=== PATIENT | female | born 1965 | race Caucasian/White ===

== ENCOUNTER 2020-10-14 15:29 | Emergency (ER) | payer MEDICAID ==
[~2020-10-14] VITALS: Ht 149.9 cm; Wt 64.4 kg
[2020-10-14 15:35] VITALS: BP 102/69
--- NOTE | 2020-10-14 15:39 | NUR ---
Pt ambulated to ER bed 7 with a steady gait.
[2020-10-14] MEDS ORDERED: ACETAMINOPHEN 325 MG TAB PO ONE (16:00)
--- NOTE | 2020-10-14 16:09 | NUR ---
LAB WORJ DRAWN BEDSIDE Addendum: 10/14/20 at 1610 by [email or web address] LAB WORK DRAWN BEDSIDE
--- NOTE | 2020-10-14 16:12 | NUR ---
retail maintenance technician at pt bedside.
[2020-10-14 16:29] LABS: BASOPHILS # (AUTO) 0.1 K/uL (0.00-0.22); BASOPHILS % (AUTO) 0.8 % (0.0-2.0); EOSINOPHILS # (AUTO) 0.1 K/uL (0-0.4); HEMATOCRIT 42.3 % (36-48); HEMOGLOBIN 14.3 g/dL (12.0-16.0); LYMPHOCYTES # (AUTO) 1.9 K/uL (2.5-16.5); MEAN CORPUSCULAR HEMOGLOBIN 31 pg (27-31); MEAN CORPUSCULAR HGB CONC 34 g/dL (33-37); MEAN CORPUSCULAR VOLUME 92.5 fL (80-94); MONOCYTES # (AUTO) 0.4 K/uL (0.8-1.0); NEUTROPHILS # (AUTO) 4.7 K/uL (1.8-7.7); NEUTROPHILS % (AUTO) 65.2 % (42.2-75.2); PLATELET COUNT (AUTO) 299 K/uL (140-450); RED BLOOD CELL COUNT(AUTO) 4.57 MIL/uL (4.20-5.40); RED CELL DISTRIBUTION WIDTH 13.6 % (11.6-13.7); WHITE BLOOD COUNT (AUTO) 7.2 K/uL (4.8-10.8)
[2020-10-14 16:42] LABS: ALBUMIN 4.3 g/dL (3.4-5.0); ANION GAP 14.2 (8-16); CARBON DIOXIDE 24.1 mmol/L (21-32); POTASSIUM 4.3 mmol/L (3.5-5.1); TOTAL BILIRUBIN 0.7 mg/dL (0.0-1.0)
--- NOTE | 2020-10-14 17:08 | NUR ---
PATIENT SITTING COMFORTABLE IN BED. STATES PAIN HAS DECREASED
--- NOTE | 2020-10-14 17:08 | NUR ---
55 Y/O FEMALE C/O CHEST PAIN 11/29 DESCRIBES SHARP RADIATES TO HEAD AND LEFT ARM WITH DIFFICULTY BREATHING INTERMITTENTLY X1WEEK. PT STATES +BLURRY VISION. PT DENIES FEVER/CHILLS, STATES +N/-V. PATIENT STATES FEEL TIGHTNESS/PRESSURE IN CHEST/THROAT AREA WHEN TAKING DEEP BREATH PMH: HTN, DM, HIGH CHOLESTEROL NKA
--- NOTE | 2020-10-14 17:13 | NUR ---
RECEIVED CRITICAL LAB VALUE BLAISE. TALIA HAYNES
[2020-10-14 17:25] LABS: RSV NEGATIVE (NEGATIVE)
[2020-10-14] MEDS ORDERED: ACET-2619 PO (17:26)
[2020-10-14] MEDS ORDERED: ALBU0.0912 INH (17:26)
[2020-10-14] MEDS ORDERED: OSEL75CA16 PO (17:26)
[2020-10-14 17:36] VITALS: BP 102/69
--- NOTE | 2020-10-14 17:36 | NUR ---
Patient discharged with v/s stable. Written and verbal after care instructions given and explained. Patient alert, oriented and verbalized understanding of instructions. Ambulatory with steady gait. All questions addressed prior to discharge. ID band removed. Patient advised to follow up with PMD. Rx of ACTAMINOPHEN 325 MG, ALBUTEROL SULFATE, OSELTAMIVIR PHOSPHATE 75 MG given. Patient educated on indication of medication including possible reaction and side effects. Opportunity to ask questions provided and answered.
== END 2020-10-14 17:32 | disposition home or self-care (01) ==
LOC: MED 15:29
DX: J10.1 Influenza due to other identified influenza virus with other respiratory manifestations (principal); I10 Essential (primary) hypertension; E78.00 Pure hypercholesterolemia, unspecified; E11.9 Type 2 diabetes mellitus without complications; Z20.822 Contact with and (suspected) exposure to COVID-19
CPT/HCPCS: 36415; 71045; 80053; 83690; 84484; 85025; 85379; 87420; 87804; 93005; 99285

== ENCOUNTER 2022-02-28 16:10 | Emergency (ER) | payer MEDICAID ==
[~2022-02-28] VITALS: Ht 149.9 cm; Wt 73.1 kg
[~2022-02-28 16:10] MED LIST: ACET-2619 PO; ALBU0.0912 INH; OSEL75CA16 PO
[2022-02-28 16:20] VITALS: BP 118/89
[2022-02-28 16:44] LABS: BASOPHILS # (AUTO) 0.1 K/uL (0.00-0.22); BASOPHILS % (AUTO) 1.1 % (0.0-2.0); EOSINOPHILS # (AUTO) 0.1 K/uL (0-0.4); EOSINOPHILS % (AUTO) 0.7 % (0.0-4.0); HEMATOCRIT 41.2 % (36-48); HEMOGLOBIN 13.9 g/dL (12.0-16.0); LYMPHOCYTES # (AUTO) 2.1 K/uL (2.5-16.5); LYMPHOCYTES % (AUTO) 17.1 % (20.5-51.1); MEAN CORPUSCULAR HEMOGLOBIN 30 pg (27-31); MEAN CORPUSCULAR HGB CONC 34 g/dL (33-37); MEAN CORPUSCULAR VOLUME 89.9 fL (80-94); MONOCYTES # (AUTO) 0.7 K/uL (0.8-1.0); MONOCYTES % (AUTO) 5.5 % (1.7-9.3); NEUTROPHILS # (AUTO) 9.1 K/uL (1.8-7.7); NEUTROPHILS % (AUTO) 75.6 % (42.2-75.2); PLATELET COUNT (AUTO) 251 K/uL (140-450); RED BLOOD CELL COUNT(AUTO) 4.58 MIL/uL (4.20-5.40); RED CELL DISTRIBUTION WIDTH 12.4 % (11.6-13.7); WHITE BLOOD COUNT (AUTO) 12.1 K/uL (4.8-10.8)
[2022-02-28 17:00] LABS: ALBUMIN 4.1 g/dL (3.4-5.0); ANION GAP 10.5 (8-16); ASPARTATE AMINOTRANSFERASE 35 U/L (15-37); CARBON DIOXIDE 31.1 mmol/L (21-32); CHLORIDE 102 mmol/L (98-107); CREATININE 1.2 mg/dL (0.6-1.3); GFR ARICAN-AMERICAN 59 mL/min (>90); GLUCOSE 120 mg/dL (74-106); POTASSIUM 3.6 mmol/L (3.5-5.1); SODIUM SERUM 140 mmol/L (136-145); TOTAL BILIRUBIN 0.4 mg/dL (0.0-1.0); UREA NITROGEN, BLOOD 15 mg/dL (7-18)
--- NOTE | 2022-02-28 18:00 | NUR ---
66/F PRESENTS TO ED WITH C/O INTERMITTENT 4/10 SHARP LEFT SIDED CHEST PAIN X1 MONTH. PATIENT DENIES INJURY OR TRAUMA, DENIES COUGH, FEVERS, OR CHILLS. STATES EPISODES OF SOB WHEN PAIN OCCURS, PATIENT WAS SEEN BY HER PCP LAST WEEK FOR SAME SYMPTOMS AND WAS D/C HOME AND ADVISED TO COME TO ED FOR CONTINUING SYMPTOMS. PATIENT DENIES N/V/D OR RECENT SICK CONTACTS.
[2022-02-28 18:23] VITALS: BP 105/76
--- NOTE | 2022-02-28 18:23 | NUR ---
Patient discharged with v/s stable. Written and verbal after care instructions ABOUT NONSPECIFIC CHEST PAIN given and explained. Patient verbalized understanding. Ambulatory with steady gait. All questions addressed prior to discharge. Advised to follow up with PMD.
== END 2022-02-28 18:23 | disposition home or self-care (01) ==
LOC: MED 16:10
DX: R07.9 Chest pain, unspecified (principal); I10 Essential (primary) hypertension; E11.9 Type 2 diabetes mellitus without complications; Z79.4 Long term (current) use of insulin; Z79.899 Other long term (current) drug therapy
CPT/HCPCS: 36415; 70450; 71045; 80053; 81002; 84484; 85025; 93005; 99285; Q0092

== ENCOUNTER 2022-11-14 23:45 | Emergency (ER) | payer MEDICAID ==
[~2022-11-14] VITALS: Ht 149.9 cm; Wt 72.1 kg
[2022-11-14 23:54] VITALS: BP 140/76; PULSE 86; RESP 16; TEMP 97.9; O2SAT 100
--- NOTE | 2022-11-15 | NUR ---
to lobby a/w bed ambulatory
== END 2022-11-15 01:34 | disposition left against medical advice (07) ==
LOC: MED 23:45
DX: R73.9 Hyperglycemia, unspecified (principal); Z53.21 Procedure and treatment not carried out due to patient leaving prior to being seen by health care provider
CPT/HCPCS: 82948; 99281